=== PATIENT | male | born 1990 | race Caucasian/White ===

== ENCOUNTER 2019-07-23 13:31 | Emergency (ER) | payer SELFPAY ==
--- NOTE | 2019-07-23 13:38 | PDOC ---
History of Present Illness - General Chief Complaint: Overdose Stated Complaint: OVERDOSE Time Seen by Provider: 07/23/19 13:32 - History of Present Illness Initial Comments: 07/23/19 13:32 Mr. Murphy is a 28 yo male w/ no pmh who presents for evaluation after "passing out" earlier today. Patient reports he took a single percocet from a friend and fell asleep while on his way to work. Patient was given narcan by police and presented to ER. Currently has no complaints and requesting discharge. The patient denies chest pain, shortness of breath, headache and dizziness. Denies fever, chills, nausea, vomit, diarrhea and constipation. Denies dysuria, frequency, urgency and hematuria. Review of Systems - Review of Systems Comments:: 07/23/19 13:35 GENERAL/CONSTITUTIONAL: No fever or chills. No weakness. HEAD, EYES, EARS, NOSE AND THROAT: No change in vision. No ear pain or discharge. No sore throat. CARDIOVASCULAR: No chest pain or shortness of breath RESPIRATORY: No cough, wheezing, or hemoptysis. GASTROINTESTINAL: No nausea, vomiting, diarrhea or constipation. GENITOURINARY: No dysuria, frequency, or change in urination. MUSCULOSKELETAL: No joint or muscle swelling or pain. No neck or back pain. SKIN: No rash NEUROLOGIC: +Loss of consciousness episode earlier today as described. No headache, vertigo, loss of consciousness, or change in strength/sensation. ENDOCRINE: No increased thirst. No abnormal weight change HEMATOLOGIC/LYMPHATIC: No anemia, easy bleeding, or history of blood clots. ALLERGIC/IMMUNOLOGIC: No hives or skin allergy. *Physical Exam - Physical Exam Comments: 07/23/19 13:35 GENERAL: Awake, alert, and fully oriented, in no acute distress HEAD: No signs of trauma, normocephalic, atraumatic EYES: PERRLA, EOMI, sclera anicteric, conjunctiva clear ENT: Auricles normal inspection, hearing grossly normal, nares patent, oropharynx clear without exudates. Moist mucosa NECK: Normal ROM, supple, no lymphadenopathy, JVD, or masses LUNGS: No distress, speaks full sentences, clear to auscultation bilaterally HEART: Regular rate and rhythm, normal S1 and S2, no murmurs, rubs or gallops, peripheral pulses normal and equal bilaterally. ABDOMEN: Soft, nontender, normoactive bowel sounds. No guarding, no rebound. No masses EXTREMITIES: Normal inspection, Normal range of motion, no edema. No clubbing or cyanosis. NEUROLOGICAL: Cranial nerves II through XII grossly intact. Normal speech, normal gait, no focal sensorimotor deficits SKIN: Warm, Dry, normal turgor, no rashes or lesions noted. Medical Decision Making - Medical Decision Making 07/23/19 13:36 Mr. Murphy is a 28 yo male w/ no pmh who presents for evaluation following narcan administration earlier today. Patient currently alert and oriented w/ no complaints. Requesting discharge at this time. Patient received total of 1.2mg narcan; police administered 0.4mg IV, 0.4mg IN BID. Patient counceled to stay for full evaluation given short term effects of narcan. Patient left prior to full registration / vitals / evaluation being complete. Patient eloped. Discharge - Discharge Information Problems reviewed: Yes Clinical Impression/Diagnosis: Overdose Qualifiers: Encounter type: initial encounter Injury intent: accidental or unintentional Qualified Code(s): T50.901A - Poisoning by unspecified drugs, medicaments and biological substances, accidental (unintentional), initial encounter Disposition: ELOPED - Follow up/Referral - Patient Discharge Instructions - Post Discharge Activity
--- NOTE | 2019-07-23 14:09 | PDOC ---
Attending Attestation - Resident Resident Name: Jose Maxwell - ED Attending Attestation I have performed the following: I have examined & evaluated the patient, The case was reviewed & discussed with the resident, I agree w/resident's findings & plan, Exceptions are as noted - HPI HPI: 07/23/19 13:56 28 M with no PMH [place] Pt states that he took a single percocet from a friend. Denies any coingestions. Does not take percocet/opiates or use any recreational drugs regularly. Per EMS, pt was given intranasal narcan with subsequent return to baseline. Pt in ED denies any complaints. Per pt, he took the percocet about 1.5 hours ago. He received the narcan 30 minutes later, approx 1 hour prior to time of evaluation. - Physicial Exam PE: 07/23/19 13:59 "GENERAL: Awake, alert, and fully oriented, in no acute distress. HEAD: No signs of trauma EYES: PERRLA, EOMI, sclera anicteric, conjunctiva clear ENT: Auricles normal inspection, hearing grossly normal, nares patent, oropharynx clear without exudates. Moist mucosa NECK: Nontender, no stepoffs, Normal ROM, supple, no lymphadenopathy, JVD, or masses LUNGS: Breath sounds equal, clear to auscultation bilaterally. No wheezes, and no crackles HEART: Regular rate and rhythm, normal S1 and S2, no murmurs, rubs or gallops ABDOMEN: Soft, nontender, normoactive bowel sounds. No guarding, no rebound. No masses EXTREMITIES: Normal range of motion, no edema. No clubbing or cyanosis. No cords, erythema, or tenderness NEUROLOGICAL: Cranial nerves II through XII intact. 5/5 strength and sensation in all extremities, Normal speech, normal gait, normal cerebellar function SKIN: Warm, Dry, normal turgor, no rashes or lesions noted. - Medical Decision Making 07/23/19 14:00 28 M who presents to ED after receiving narcan in the field. Pt reportedly took single percocet. In ED, pt was awake, alert, clinically sober. Intranasal narcan , if given 1 hour prior to eval, would have been metabolized by this time. Pt has not required any repeat doses. No clinical evidence of intoxication. Pt walked out of ED prior to vitals being taken, left before full evaluation and medical clearance. Was clinically sober, with no SI/HI/AVH, and appeared to have capacity to make decisions.
== END 2019-07-23 13:35 | disposition left against medical advice (07) ==
LOC: JER 13:31
DX: T40.2X1A Poisoning by other opioids, accidental (unintentional), initial encounter (principal); R55 Syncope and collapse; Y92.522 Railway station as the place of occurrence of the external cause
CPT/HCPCS: 99281-25